=== PATIENT | female | born 1985 | race African-American/Black ===

== ENCOUNTER 2019-08-08 06:15 | Inpatient (IN) | payer MEDICAID, OTHER ==
[~2019-08-08] VITALS: Ht 157.5 cm; Wt 54.0 kg
[~2019-08-08 06:15] MED LIST: AMLO10TA80 PO; BENA20TA10 PO; CALC667C4 PO; CELL5 PO; HYDROXYCHLOROQUINE PO; MIRT-91 PO; [UNRECOGNIZED DRUG - OTHER] PO
[2019-08-08] MEDS ORDERED: ONDANSETRON HCL 4MG/2ML INJ IV STA (06:29)
[2019-08-08] MEDS ORDERED: MORPHINE SULFATE 4 MG/ML CPJ (NOT FOR IM USE) IV STA (06:29)
[2019-08-08] MEDS ORDERED: SODIUM CHLORIDE 0.9% 1000ML BAG (SEPSIS BOLUS) IV ONE (06:30)
[2019-08-08] MEDS ORDERED: ASPIRIN 81MG TABLET PO ONE (06:30)
[2019-08-08] MEDS ORDERED: LEVOFLOXACIN 750MG PREMIX 150 ML IV ONE (06:30)
[2019-08-08 08:31] LABS: EOSINOPHILS % 1.2 % (0.0-5.0); HEMATOCRIT. 28.3 % (36.0-48.0); HEMOGLOBIN. 9.2 g/dL (12.0-16.0); LYMPHOCYTES % 18.8 % (20.0-50.0); MEAN CORPUSCULAR HEMOGLOBIN 29.9 pg (28.0-32.0); MEAN CORPUSCULAR VOLUME 91.6 fL (81.0-99.0); MEAN PLATELET VOLUME 10.9 fl (7.4-10.4); MONOCYTES % 9.9 % (2.0-8.0); NEUTROPHILS % 69.1 % (40.0-76.0); PLATELET 120 x1000/uL (130-400); RED BLOOD CELL COUNT 3.09 mill/uL (4.2-5.4)
[2019-08-08 08:34] LABS: CHLORIDE 106 mEq/L (98-107)
[2019-08-08 08:38] LABS: INR 1.2; PROTHROMBIN TIME 11.9 sec (9.6-11.0)
[2019-08-08 08:51] LABS: HCG SCREEN NEGATIVE
[2019-08-08] MEDS ORDERED: IPRATROPIUM/ALBUTEROL 0.5-3(2.5)MG/3ML NEB HHN PRN (10:00)
[2019-08-08] MEDS ORDERED: DOCUSATE SODIUM 100MG CAPSULE PO PRN (10:00)
[2019-08-08] MEDS ORDERED: MORPHINE SULFATE 2 MG/ML CPJ (NOT FOR IM USE) IV PRN (10:00)
[2019-08-08] MEDS ORDERED: ACETAMINOPHEN 325MG TABLET PO PRN (10:00)
[2019-08-08] MEDS ORDERED: LORAZEPAM 0.5MG TABLET PO PRN (10:00)
[2019-08-08] MEDS ORDERED: HYDROCODONE/ACETAMINOPHEN 5/325MG TABLET PO PRN (10:00)
[2019-08-08] MEDS: ONDANSETRON HCL 4MG/2ML INJ IV PRN ×2 (11:37→21:31)
[2019-08-08 13:31] VITALS: BP 160/109
[2019-08-08 14:09] LABS: CREATINE KINASE MB FRACTION 1.9 ng/mL (0.5-3.6)
[2019-08-08] MEDS ORDERED: CEFTRIAXONE 1 G PREMIX 50 ML IV SCH (14:30)
[2019-08-08] MEDS ORDERED: AZITHROMYCIN 500 MG in DEXT 5% WATER 250 ML IV SCH (15:00)
[2019-08-08] MEDS: MORPHINE SULFATE 2 MG/ML CPJ (NOT FOR IM USE) IV PRN ×2 (15:39→21:05)
[2019-08-08] MEDS ORDERED: DIPHENHYDRAMINE 25MG CAPSULE PO PRN (16:15)
[2019-08-08] MEDS ORDERED: DIPHENHYDRAMINE 50MG/ML VIAL IV NR (16:15)
[2019-08-08 16:21] VITALS: BP 178/103
[2019-08-08] MEDS ORDERED: ONDANSETRON HCL 4MG/2ML INJ IV PRN (16:45)
[2019-08-08] MEDS ORDERED: CLONIDINE 0.1MG TABLET PO PRN (16:45)
[2019-08-08 20:00] VITALS: BP 160/101
[2019-08-08] MEDS: HYDROXYCHLOROQUINE SULFATE 200MG TABLET PO SCH (20:59)
[2019-08-08] MEDS: MYCOPHENOLATE MOFETIL 500MG TABLET PO SCH (20:59)
[2019-08-08] MEDS ORDERED: MIRTAZAPINE 15MG TABLET PO SCH (21:00)
[2019-08-08] MEDS ORDERED: MIRTAZAPINE 30MG TABLET PO SCH (21:00)
[2019-08-09] VITALS: BP 175/114
[2019-08-09] MEDS: MORPHINE SULFATE 2 MG/ML CPJ (NOT FOR IM USE) IV PRN ×2 (01:02→09:08)
[2019-08-09 04:00] VITALS: BP 174/107
[2019-08-09 07:12] LABS: HEMATOCRIT. 31.4 % (36.0-48.0); HEMOGLOBIN. 10.1 g/dL (12.0-16.0); MEAN CORPUSCULAR HEMOGLOBIN 29.7 pg (28.0-32.0); MEAN CORPUSCULAR VOLUME 92.2 fL (81.0-99.0); MEAN PLATELET VOLUME 11.2 fl (7.4-10.4); PLATELET 124 x1000/uL (130-400); RED BLOOD CELL COUNT 3.41 mill/uL (4.2-5.4); RED CELL DISTRIBUTION WIDTH 14.4 % (11.6-14.6)
[2019-08-09 07:41] LABS: PHOSPHORUS 6.8 mg/dL (2.5-4.9)
[2019-08-09 07:54] VITALS: BP 176/113
[2019-08-09] MEDS ORDERED: CALCIUM ACETATE 667MG CAPSULE PO SCH (08:10)
[2019-08-09] MEDS ORDERED: BENAZEPRIL 10MG TABLET PO SCH (09:00)
[2019-08-09] MEDS ORDERED: FOLIC ACID 1MG TABLET PO SCH (09:00)
[2019-08-09] MEDS: MYCOPHENOLATE MOFETIL 500MG TABLET PO SCH (09:00)
[2019-08-09] MEDS ORDERED: MULTIVITAMINS,THER W-MINERALS TABLET PO SCH (09:00)
[2019-08-09] MEDS ORDERED: THIAMINE HCL 100MG TABLET PO SCH (09:00)
[2019-08-09] MEDS ORDERED: AMLODIPINE 10MG TABLET PO SCH (09:00)
[2019-08-09] MEDS: ONDANSETRON HCL 4MG/2ML INJ IV PRN (09:07)
[2019-08-09 09:08] VITALS: BP 176/113
[2019-08-09] MEDS: HYDROXYCHLOROQUINE SULFATE 200MG TABLET PO SCH (09:08)
[2019-08-10 06:31] LABS: PLATELET ESTIMATE NORMAL
== END 2019-08-09 11:02 | disposition left against medical advice (07) | DRG 139 ==
LOC: ER 06:15 → 7WST 09:13 → ENRESERV 11:12
PROVIDERS: ADMIT Internal Medicine; ATTEND Internal Medicine
PROC: 5A1D70Z Performance of Urinary Filtration, Intermittent, Less than 6 Hours Per Day (ICD-10-PCS; principal; 2019-08-08)
DX: J18.9 Pneumonia, unspecified organism (principal); J96.00 Acute respiratory failure, unspecified whether with hypoxia or hypercapnia; E43 Unspecified severe protein-calorie malnutrition; D69.59 Other secondary thrombocytopenia; I12.0 Hypertensive chronic kidney disease with stage 5 chronic kidney disease or end stage renal disease; J81.1 Chronic pulmonary edema; E87.70 Fluid overload, unspecified; M32.9 Systemic lupus erythematosus, unspecified; D63.8 Anemia in other chronic diseases classified elsewhere; Z53.21 Procedure and treatment not carried out due to patient leaving prior to being seen by health care provider; D72.821 Monocytosis (symptomatic); F10.20 Alcohol dependence, uncomplicated; F12.10 Cannabis abuse, uncomplicated; F17.210 Nicotine dependence, cigarettes, uncomplicated; N18.6 End stage renal disease; Z59.0 Homelessness; Z91.15 Patient's noncompliance with renal dialysis; Z91.19 Patient's noncompliance with other medical treatment and regimen; Z99.2 Dependence on renal dialysis; Z68.21 Body mass index [BMI] 21.0-21.9, adult; Z79.899 Other long term (current) drug therapy
CPT/HCPCS: 36415; 71045; 80048; 82550; 82553; 83605; 83735; 83880; 84100; 84145; 84484; 84703; 85379; 93005; 96365; 99291; J0456; J0696; J1200; J1956; J2270; J2405; J7030; J7040; J7060; J7517; Q0163

== ENCOUNTER 2019-08-12 10:09 | Emergency (ER) | payer MEDICAID | END 2019-08-12 11:18 | disposition left against medical advice (07) | LOC: ER 10:09 | DX: Z99.2 Dependence on renal dialysis (principal); Z53.21 Procedure and treatment not carried out due to patient leaving prior to being seen by health care provider ==

== ENCOUNTER 2021-09-30 21:19 | Inpatient (IN) | payer MEDICAID ==
[~2021-09-30] VITALS: Ht 157.5 cm; Wt 45.4 kg
[~2021-09-30 21:19] MED LIST changes: +MIRT-90 PO; -MIRT-91 PO
[2021-09-30] MEDS ORDERED: NITROGLYCERIN 0.4MG TABLET SL SL PRN (23:45)
[2021-09-30] MEDS ORDERED: ASPIRIN 81MG TABLET PO ONE (23:45)
[2021-09-30] MEDS ORDERED: LORAZEPAM 2MG/ML CPJ IV ONE (23:45)
[2021-10-01 00:13] LABS: CHLORIDE 105 mEq/L (98-107)
[2021-10-01 00:17] LABS: ETHANOL BLOOD < 10 mg/dL; HCG SCREEN NEGATIVE
[2021-10-01 00:23] LABS: BASOPHILS % 0.2 % (0.0-2.0); HEMATOCRIT. 35.5 % (36.0-48.0); HEMOGLOBIN. 11.5 g/dL (12.0-16.0); LYMPHOCYTES % 8.4 % (20.0-50.0); MEAN CORPUSCULAR HEMOGLOBIN 31.1 pg (28.0-32.0); MEAN CORPUSCULAR VOLUME 95.8 fL (81.0-99.0); MEAN PLATELET VOLUME 10.1 fl (7.4-10.4); MONOCYTES % 10.8 % (2.0-8.0); NEUTROPHILS % 79.6 % (40.0-76.0); PLATELET 207 x1000/uL (130-400); RED CELL DISTRIBUTION WIDTH 15.9 % (11.6-14.6)
[2021-10-01] MEDS ORDERED: AZITHROMYCIN 500MG/250ML 250 ML IV ONE (00:30)
[2021-10-01] MEDS ORDERED: CEFTRIAXONE 1 G PREMIX 50 ML IV ONE (00:30)
[2021-10-01 08:00] VITALS: BP 120/83
[2021-10-01] MEDS ORDERED: ATOR20TA65 MT (09:50)
[2021-10-01] MEDS ORDERED: METO-396 MT (09:50)
[2021-10-01] MEDS ORDERED: SPIR25TA6 MT (09:50)
[2021-10-01] MEDS ORDERED: HYDR-3782 MT (09:50)
[2021-10-01] MEDS ORDERED: ONDANSETRON HCL 4MG/2ML INJ IV PRN (10:15)
[2021-10-01] MEDS ORDERED: METOPROLOL SUCCINATE 50MG ER TABLET PO SCH (10:15)
[2021-10-01] MEDS ORDERED: CLONIDINE 0.1MG TABLET PO PRN (10:15)
[2021-10-01] MEDS ORDERED: ACETAMINOPHEN 325MG TABLET PO PRN (10:15)
[2021-10-01] MEDS ORDERED: MAGNESIUM/ALUMINUM HYDROXIDE/SIMETHICONE 30ML UDC PO PRN (10:15)
[2021-10-01] MEDS ORDERED: HYDROXYCHLOROQUINE SULFATE 200MG TABLET PO SCH (10:15)
[2021-10-01] MEDS ORDERED: BENAZEPRIL 10MG TABLET PO SCH (10:15)
[2021-10-01] MEDS ORDERED: AMLODIPINE 10MG TABLET PO SCH (10:15)
[2021-10-01] MEDS ORDERED: HYDROCODONE/ACETAMINOPHEN 5/325MG TABLET PO PRN (10:15)
[2021-10-01] MEDS ORDERED: ENOXAPARIN 40MG/0.4ML SYR SUBCUT SCH (10:15)
[2021-10-01] MEDS ORDERED: DOCUSATE SODIUM 100MG CAPSULE PO PRN (10:15)
[2021-10-01] MEDS ORDERED: NALOXONE HCL 0.4MG/ML VIAL IV PRN (10:15)
[2021-10-01] MEDS ORDERED: REN800 MT (10:40)
[2021-10-01] MEDS ORDERED: ENOXAPARIN 30MG/0.3ML SYR SUBCUT SCH (11:00)
[2021-10-01] MEDS ORDERED: METOPROLOL TARTRATE 25MG TABLET PO SCH (11:00)
[2021-10-01] MEDS: HYDROCODONE/ACETAMINOPHEN 5/325MG TABLET PO PRN ×2 (11:03→16:41)
[2021-10-01] MEDS: MYCOPHENOLATE MOFETIL 500MG TABLET PO SCH ×2 (11:04→16:42)
[2021-10-01 12:00] VITALS: BP 139/93
[2021-10-01] MEDS: SEVELAMER CARBONATE 800 MG TABLET PO SCH ×2 (12:53→16:41)
[2021-10-01] MEDS ORDERED: CALCIUM ACETATE 667MG CAPSULE PO SCH (13:10)
[2021-10-01 16:00] VITALS: BP 132/90
[2021-10-01 16:41] VITALS: BP 132/90
[2021-10-01] MEDS ORDERED: MIRTAZAPINE 15MG TABLET PO SCH (21:00)
[2021-10-01] MEDS ORDERED: ATORVASTATIN CALCIUM 20MG TABLET PO SCH (21:00)
[2021-10-02] MEDS ORDERED: OMEPRAZOLE 20MG CAPSULE EXTENDED RELEASE PO SCH (06:40)
== END 2021-10-01 19:18 | disposition left against medical advice (07) | DRG 203 ==
LOC: ER 21:19 → MICUSO 10-01 04:27 → 7WST 10-01 04:40 → 7EST 10-01 15:15
PROVIDERS: ADMIT Internal Medicine; ATTEND Internal Medicine
DX: M94.0 Chondrocostal junction syndrome [Tietze] (principal); I12.0 Hypertensive chronic kidney disease with stage 5 chronic kidney disease or end stage renal disease; E44.0 Moderate protein-calorie malnutrition; D63.8 Anemia in other chronic diseases classified elsewhere; N18.6 End stage renal disease; E87.70 Fluid overload, unspecified; Z20.822 Contact with and (suspected) exposure to COVID-19; F12.10 Cannabis abuse, uncomplicated; Z53.29 Procedure and treatment not carried out because of patient's decision for other reasons; F19.10 Other psychoactive substance abuse, uncomplicated; Z91.19 Patient's noncompliance with other medical treatment and regimen; Z99.2 Dependence on renal dialysis; Z68.1 Body mass index [BMI] 19.9 or less, adult
CPT/HCPCS: 36415; 71045; 80053; 80320; 83605; 83880; 84484; 84703; 85025; 87426; 93005; 93970; 99285; J0456; J0696; J1650; J2060; J7517; G0480

== ENCOUNTER 2021-10-01 20:39 | Inpatient (IN) | payer MEDICAID ==
[~2021-10-01] VITALS: Ht 157.5 cm; Wt 49.0 kg
[~2021-10-01 20:39] MED LIST changes: +ATOR20TA65 MT; +HYDR-3782 MT; +METO-396 MT; +REN800 MT; +SPIR25TA6 MT
[2021-10-02] MEDS ORDERED: CEFTRIAXONE 1 G PREMIX 50 ML IV ONE (01:15)
[2021-10-02] MEDS ORDERED: AZITHROMYCIN 500MG/250ML 250 ML IV ONE (01:15)
[2021-10-02] MEDS ORDERED: ALBUTEROL (0.083%) 2.5MG/3ML NEB HHN ONE (01:15)
[2021-10-02] MEDS ORDERED: SODIUM POLYSTYRENE SULFONATE 15 G/60 ML BOT PO ONE (01:15)
[2021-10-02] MEDS ORDERED: SODIUM BICARBONATE 8.4% 1 MEQ/ML 50ML SYR IV ONE (01:15)
[2021-10-02 01:20] LABS: BASOPHILS % 1.1 % (0.0-2.0); EOSINOPHILS % 2.4 % (0.0-5.0); HEMOGLOBIN. 10.1 g/dL (12.0-16.0); LYMPHOCYTES % 8.5 % (20.0-50.0); MEAN CORPUSCULAR HEMOGLOBIN 29.5 pg (28.0-32.0); MEAN CORPUSCULAR VOLUME 91.1 fL (81.0-99.0); MEAN PLATELET VOLUME 9.2 fl (7.4-10.4); MONOCYTES % 11.5 % (2.0-8.0); NEUTROPHILS % 76.5 % (40.0-76.0); PLATELET 177 x1000/uL (130-400); RED BLOOD CELL COUNT 3.41 mill/uL (4.2-5.4); RED CELL DISTRIBUTION WIDTH 16.1 % (11.6-14.6)
[2021-10-02 01:25] LABS: CHLORIDE 103 mEq/L (98-107)
[2021-10-02 01:28] LABS: INR 1.3; PROTHROMBIN TIME 13.3 sec (9.6-11.0)
[2021-10-02 01:29] LABS: ETHANOL BLOOD < 10 mg/dL
[2021-10-02] MEDS ORDERED: ASPIRIN 81MG TABLET PO ONE (01:30)
[2021-10-02] MEDS ORDERED: NITROGLYCERIN 0.4MG TABLET SL SL PRN (01:30)
[2021-10-02 01:31] LABS: HCG SCREEN NEGATIVE
[2021-10-02] MEDS ORDERED: NALOXONE HCL 0.4MG/ML VIAL IV PRN ×2 (07:15→09:30)
[2021-10-02] MEDS ORDERED: ONDANSETRON HCL 4MG/2ML INJ IV PRN (08:15)
[2021-10-02] MEDS ORDERED: ACETAMINOPHEN 325MG TABLET PO PRN (08:15)
[2021-10-02] MEDS: HYDROCODONE/ACETAMINOPHEN 5/325MG TABLET PO PRN ×4 (09:13→21:14)
[2021-10-02] MEDS ORDERED: LEVOFLOXACIN 250MG PREMIX 50 ML IV SCH (10:00)
[2021-10-02 11:22] LABS: HEPATITIS B SURFACE ANTIGEN NEGATIVE
[2021-10-02 11:48] VITALS: BP 130/80
[2021-10-02 11:49] VITALS: BP 130/80
[2021-10-02] MEDS ORDERED: ENOXAPARIN 30MG/0.3ML SYR SUBCUT SCH (12:30)
[2021-10-02 16:00] VITALS: BP 147/80
[2021-10-02] MEDS ORDERED: CALCIUM ACETATE 667MG CAPSULE PO SCH (17:10)
[2021-10-02] MEDS ORDERED: DIPHENHYDRAMINE 50MG/ML VIAL IV NR ×2 (17:30→19:30)
[2021-10-02 20:00] VITALS: BP 137/77
[2021-10-03] VITALS: BP 140/79
[2021-10-03] MEDS ORDERED: DIPHENHYDRAMINE 50MG/ML VIAL IV PRN
[2021-10-03] MEDS: HYDROCODONE/ACETAMINOPHEN 5/325MG TABLET PO PRN ×2 (01:15→05:17)
[2021-10-03 05:17] VITALS: BP 129/68
[2021-10-03 06:33] LABS: BASOPHILS % 1.4 % (0.0-2.0); EOSINOPHILS % 2.5 % (0.0-5.0); HEMATOCRIT. 28.6 % (36.0-48.0); HEMOGLOBIN. 9.4 g/dL (12.0-16.0); LYMPHOCYTES % 13.9 % (20.0-50.0); MEAN CORPUSCULAR HEMOGLOBIN 30.3 pg (28.0-32.0); MEAN CORPUSCULAR VOLUME 92.2 fL (81.0-99.0); NEUTROPHILS % 72.2 % (40.0-76.0); PLATELET 140 x1000/uL (130-400); RED BLOOD CELL COUNT 3.11 mill/uL (4.2-5.4)
== END 2021-10-03 07:00 | disposition left against medical advice (07) | DRG 139 ==
LOC: ER 20:39 → MICUSO 10-02 01:30 → 7EST 10-02 10:51
PROVIDERS: ADMIT Internal Medicine; ATTEND Internal Medicine
PROC: 5A1D70Z Performance of Urinary Filtration, Intermittent, Less than 6 Hours Per Day (ICD-10-PCS; principal; 2021-10-02)
DX: J18.9 Pneumonia, unspecified organism (principal); E43 Unspecified severe protein-calorie malnutrition; I13.11 Hypertensive heart and chronic kidney disease without heart failure, with stage 5 chronic kidney disease, or end stage renal disease; N18.6 End stage renal disease; M32.9 Systemic lupus erythematosus, unspecified; M94.0 Chondrocostal junction syndrome [Tietze]; E87.5 Hyperkalemia; I25.10 Atherosclerotic heart disease of native coronary artery without angina pectoris; F17.210 Nicotine dependence, cigarettes, uncomplicated; M19.90 Unspecified osteoarthritis, unspecified site; F31.9 Bipolar disorder, unspecified; Z20.822 Contact with and (suspected) exposure to COVID-19; R74.8 Abnormal levels of other serum enzymes; R91.8 Other nonspecific abnormal finding of lung field; Z79.899 Other long term (current) drug therapy; Z99.2 Dependence on renal dialysis; Z87.81 Personal history of (healed) traumatic fracture; Z68.1 Body mass index [BMI] 19.9 or less, adult; D64.9 Anemia, unspecified
CPT/HCPCS: 36415; 71045; 80048; 80053; 80320; 83605; 83880; 84484; 84703; 85025; 86705; 86709; 86803; 87340; 87426; 93005; 94640; 99285; J0456; J0696; J1200; J1650; J1956; J3490; G0480

== ENCOUNTER 2022-01-02 14:39 | Emergency (ER) | payer MEDICAID ==
[~2022-01-02] VITALS: Ht 157.5 cm; Wt 70.0 kg
[2022-01-02 17:49] VITALS: BP 170/110
[2022-01-02 18:10] LABS: BASOPHILS % 0.5 % (0.0-2.0); EOSINOPHILS % 0.3 % (0.0-5.0); HEMATOCRIT. 32.6 % (36.0-48.0); HEMOGLOBIN. 10.4 g/dL (12.0-16.0); LYMPHOCYTES % 11.7 % (20.0-50.0); MEAN CORPUSCULAR HEMOGLOBIN 29.1 pg (28.0-32.0); MEAN PLATELET VOLUME 9.3 fl (7.4-10.4); MONOCYTES % 9.2 % (2.0-8.0); NEUTROPHILS % 78.3 % (40.0-76.0); PLATELET 112 x1000/uL (130-400); RED BLOOD CELL COUNT 3.58 mill/uL (4.2-5.4); RED CELL DISTRIBUTION WIDTH 16.2 % (11.6-14.6)
[2022-01-02 18:17] LABS: CHLORIDE 99 mEq/L (98-107)
[2022-01-02] MEDS ORDERED: ACETAMINOPHEN 325MG TABLET PO ONE (18:45)
== END 2022-01-02 19:02 | disposition home or self-care (01) ==
LOC: ER 14:39
DX: F16.129 Hallucinogen abuse with intoxication, unspecified (principal); R41.0 Disorientation, unspecified; R45.1 Restlessness and agitation; I12.0 Hypertensive chronic kidney disease with stage 5 chronic kidney disease or end stage renal disease; N18.6 End stage renal disease; D63.1 Anemia in chronic kidney disease; F12.10 Cannabis abuse, uncomplicated; M19.90 Unspecified osteoarthritis, unspecified site; F31.9 Bipolar disorder, unspecified; I25.10 Atherosclerotic heart disease of native coronary artery without angina pectoris; M32.9 Systemic lupus erythematosus, unspecified; E78.00 Pure hypercholesterolemia, unspecified; Z78.1 Physical restraint status; Z99.2 Dependence on renal dialysis; Z91.14 Patient's other noncompliance with medication regimen
CPT/HCPCS: 36415; 71045; 80053; 85025; 99291

== ENCOUNTER 2022-01-02 19:24 | Emergency (ER) | payer MEDICAID ==
[~2022-01-02] VITALS: Ht 157.5 cm; Wt 50.8 kg
[2022-01-02 22:56] LABS: BASOPHILS % 0.6 % (0.0-2.0); EOSINOPHILS % 0.4 % (0.0-5.0); HEMATOCRIT. 34.8 % (36.0-48.0); HEMOGLOBIN. 11.4 g/dL (12.0-16.0); LYMPHOCYTES % 15.5 % (20.0-50.0); MEAN CORPUSCULAR HEMOGLOBIN 29.8 pg (28.0-32.0); MEAN CORPUSCULAR VOLUME 90.9 fL (81.0-99.0); MEAN PLATELET VOLUME 8.8 fl (7.4-10.4); MONOCYTES % 13.4 % (2.0-8.0); NEUTROPHILS % 70.1 % (40.0-76.0); PLATELET 104 x1000/uL (130-400); RED BLOOD CELL COUNT 3.83 mill/uL (4.2-5.4); RED CELL DISTRIBUTION WIDTH 15.9 % (11.6-14.6)
[2022-01-02 23:02] LABS: CHLORIDE 99 mEq/L (98-107)
[2022-01-02 23:06] LABS: ETHANOL BLOOD < 10 mg/dL
[2022-01-03 01:15] VITALS: BP 156/98
== END 2022-01-03 01:28 | disposition home or self-care (01) ==
LOC: ER 19:24
DX: N19 Unspecified kidney failure (principal); I12.0 Hypertensive chronic kidney disease with stage 5 chronic kidney disease or end stage renal disease; Z99.2 Dependence on renal dialysis; E78.00 Pure hypercholesterolemia, unspecified; I25.10 Atherosclerotic heart disease of native coronary artery without angina pectoris; F31.9 Bipolar disorder, unspecified; Z98.890 Other specified postprocedural states; F12.10 Cannabis abuse, uncomplicated; Z79.899 Other long term (current) drug therapy
CPT/HCPCS: 36415; 71045; 80053; 80320; 83880; 84484; 85025; 93005; 99285; G0480

== ENCOUNTER 2022-04-17 01:55 | Emergency (ER) | payer MEDICAID ==
[~2022-04-17] VITALS: Ht 165.1 cm; Wt 48.0 kg
[2022-04-17] MEDS ORDERED: HYDROCODONE/ACETAMINOPHEN 5/325MG TABLET PO ONE (03:15)
[2022-04-17 03:25] VITALS: BP 152/90
[2022-04-17 03:33] LABS: BASOPHILS % 0.8 % (0.0-2.0); EOSINOPHILS % 1.4 % (0.0-5.0); HEMATOCRIT. 25.9 % (36.0-48.0); HEMOGLOBIN. 8.4 g/dL (12.0-16.0); MEAN CORPUSCULAR HEMOGLOBIN 27.9 pg (28.0-32.0); MEAN CORPUSCULAR VOLUME 86.4 fL (81.0-99.0); MONOCYTES % 9.4 % (2.0-8.0); NEUTROPHILS % 78.4 % (40.0-76.0); PLATELET 148 x1000/uL (130-400); RED BLOOD CELL COUNT 2.99 mill/uL (4.2-5.4); RED CELL DISTRIBUTION WIDTH 17.5 % (11.6-14.6)
[2022-04-17 03:42] LABS: CHLORIDE 99 mEq/L (98-107)
[2022-04-17] MEDS ORDERED: DIPHENHYDRAMINE 25MG CAPSULE PO ONE (04:45)
== END 2022-04-17 05:05 | disposition home or self-care (01) ==
LOC: ER 01:55
DX: S50.11XA Contusion of right forearm, initial encounter (principal); S20.212A Contusion of left front wall of thorax, initial encounter; E11.22 Type 2 diabetes mellitus with diabetic chronic kidney disease; I12.0 Hypertensive chronic kidney disease with stage 5 chronic kidney disease or end stage renal disease; N18.6 End stage renal disease; M32.9 Systemic lupus erythematosus, unspecified; Z99.2 Dependence on renal dialysis; W10.8XXA Fall (on) (from) other stairs and steps, initial encounter; Y93.89 Activity, other specified; Y92.89 Other specified places as the place of occurrence of the external cause
CPT/HCPCS: 36415; 71101; 73090; 80053; 82962; 85025; 99284; Q0163

== ENCOUNTER 2022-09-20 11:25 | Inpatient (IN) | payer MEDICAID ==
[~2022-09-20] VITALS: Ht 157.5 cm; Wt 49.9 kg
[~2022-09-20 11:25] MED LIST changes: +BENA-8 PO; -BENA20TA10 PO
[2022-09-20 12:00] LABS: BASOPHILS % 0.5 % (0.0-2.0); EOSINOPHILS % 0.3 % (0.0-5.0); HEMATOCRIT. 35.6 % (36.0-48.0); HEMOGLOBIN. 11.7 g/dL (12.0-16.0); LYMPHOCYTES % 7.3 % (20.0-50.0); MEAN CORPUSCULAR HEMOGLOBIN 27.7 pg (28.0-32.0); MEAN CORPUSCULAR VOLUME 84.5 fL (81.0-99.0); MONOCYTES % 10.2 % (2.0-8.0); NEUTROPHILS % 81.7 % (40.0-76.0); PLATELET 137 x1000/uL (130-400); RED CELL DISTRIBUTION WIDTH 20.2 % (11.6-14.6)
[2022-09-20 12:19] LABS: CHLORIDE 98 mEq/L (98-107)
[2022-09-20] MEDS ORDERED: DOCUSATE SODIUM 100MG CAPSULE PO PRN (14:00)
[2022-09-20] MEDS ORDERED: IPRATROPIUM/ALBUTEROL 0.5-3(2.5)MG/3ML NEB HHN PRN (14:00)
[2022-09-20] MEDS ORDERED: CLONIDINE 0.1MG TABLET PO PRN (14:00)
[2022-09-20] MEDS ORDERED: ZOLPIDEM TARTRATE 5MG TABLET PO PRN (14:15)
[2022-09-20] MEDS ORDERED: SPIRONOLACTONE 25MG TABLET PO SCH (14:30)
[2022-09-20] MEDS ORDERED: METO-385 PO (14:51)
[2022-09-20] MEDS ORDERED: HYDR-4133 PO (14:51)
[2022-09-20] MEDS ORDERED: COR3 PO (14:52)
[2022-09-20] MEDS ORDERED: MAGN400T26 PO (14:52)
[2022-09-20] MEDS ORDERED: ASPI-1406 PO (14:53)
[2022-09-20] MEDS ORDERED: PANT40SU PO (14:54)
[2022-09-20] MEDS ORDERED: MELO10CA PO (14:54)
[2022-09-20] MEDS ORDERED: ATOR80TA PO (14:55)
[2022-09-20] MEDS ORDERED: SEVE800T8 PO (14:57)
[2022-09-20] MEDS ORDERED: HYDROXYZINE 10 MG TABLET PO PRN (15:00)
[2022-09-20] MEDS: AMLODIPINE 10MG TABLET PO SCH (15:10)
[2022-09-20 16:00] VITALS: BP 130/89
[2022-09-20 16:26] LABS: CREATINE KINASE 27 IU/L (26-192); CREATINE KINASE MB FRACTION 2.1 ng/mL (0.5-3.6); ETHANOL BLOOD < 10 mg/dL
[2022-09-20] MEDS: SEVELAMER CARBONATE 800 MG TABLET PO SCH (18:23)
[2022-09-20] MEDS: HYDROCODONE/ACETAMINOPHEN 5/325MG TABLET PO PRN ×2 (18:24→23:33)
[2022-09-20] MEDS: MYCOPHENOLATE MOFETIL 500MG TABLET PO SCH (18:24)
[2022-09-20] MEDS: HYDROXYCHLOROQUINE SULFATE 200MG TABLET PO SCH (18:24)
[2022-09-20] MEDS ORDERED: NALOXONE HCL 0.4MG/ML VIAL IV PRN (18:30)
[2022-09-20] MEDS: MIRTAZAPINE 30MG TABLET PO SCH (21:00)
[2022-09-20] MEDS: ATORVASTATIN CALCIUM 20MG TABLET PO SCH (21:02)
[2022-09-20] MEDS: FAMOTIDINE 20MG TABLET PO SCH (21:02)
[2022-09-20 21:27] LABS: CREATINE KINASE MB FRACTION 2.4 ng/mL (0.5-3.6)
[2022-09-20 21:46] LABS: HEPATITIS B SURFACE ANTIGEN NEGATIVE
[2022-09-20] MEDS: ONDANSETRON HCL 4MG/2ML INJ IV PRN (23:39)
[2022-09-21] VITALS (9 sets, daily range): BP systolic 120–143; BP diastolic 82–99
[2022-09-21] MEDS: SEVELAMER CARBONATE 800 MG TABLET PO SCH ×3 (06:35→17:06)
[2022-09-21] MEDS: HYDROCODONE/ACETAMINOPHEN 5/325MG TABLET PO PRN ×4 (07:43→21:05)
[2022-09-21] MEDS ORDERED: METOPROLOL SUCCINATE 50MG ER TABLET PO SCH (09:00)
[2022-09-21] MEDS ORDERED: MEDICATION NOT ON FORMULARY EA (Benazepril Hcl 20 MG) PO SCH (09:00)
[2022-09-21] MEDS ORDERED: MEDICATION NOT ON FORMULARY EA (Metoprolol Succinate 1 TAB) MT SCH (09:00)
[2022-09-21] MEDS ORDERED: HYDROXYCHLOROQUINE 200 MG PO SCH (09:00)
[2022-09-21] MEDS: BENAZEPRIL 10MG TABLET PO SCH (09:25)
[2022-09-21] MEDS: HYDROXYCHLOROQUINE SULFATE 200MG TABLET PO SCH (09:25)
[2022-09-21] MEDS: METOPROLOL SUCCINATE 50MG ER TABLET PO SCH (09:25)
[2022-09-21] MEDS: AMLODIPINE 10MG TABLET PO SCH (09:26)
[2022-09-21] MEDS: DIPHENHYDRAMINE 25MG CAPSULE PO NR ×2 (09:26→14:58)
[2022-09-21] MEDS: MYCOPHENOLATE MOFETIL 500MG TABLET PO SCH ×2 (09:28→17:05)
[2022-09-21 10:29] LABS: BASOPHILS % 0.6 % (0.0-2.0); EOSINOPHILS % 1.1 % (0.0-5.0); HEMATOCRIT. 33.2 % (36.0-48.0); HEMOGLOBIN. 10.5 g/dL (12.0-16.0); LYMPHOCYTES % 10.3 % (20.0-50.0); MEAN CORPUSCULAR HEMOGLOBIN 26.8 pg (28.0-32.0); MEAN CORPUSCULAR VOLUME 85.1 fL (81.0-99.0); MEAN PLATELET VOLUME 9.5 fl (7.4-10.4); MONOCYTES % 10.4 % (2.0-8.0); NEUTROPHILS % 77.6 % (40.0-76.0); PLATELET 116 x1000/uL (130-400)
[2022-09-21 10:44] LABS: CHLORIDE 100 mEq/L (98-107)
[2022-09-21 11:00] LABS: HDL CHOLESTEROL 51 mg/dL (40-59); LDL CHOLESTEROL 60 mg/dL (5-100); PHOSPHORUS 6.2 mg/dL (2.5-4.9); T4 FREE 0.94 ng/dL (0.76-1.46); TOTAL IRON BINDING CAPACITY 178 ug/dL (250-450)
[2022-09-21 11:14] LABS: VITAMIN B12 SERUM 773 pg/mL (211-911)
[2022-09-21] MEDS ORDERED: VANCOMYCIN 1G PREMIX 200 ML IV SCH (14:00)
[2022-09-21] MEDS: MORPHINE SULFATE 2 MG/ML CPJ (NOT FOR IM USE) IV NR ×2 (14:15→14:21)
[2022-09-21 14:28] LABS: FERRITIN 934 ng/mL (10-291)
[2022-09-21] MEDS: MIRTAZAPINE 30MG TABLET PO SCH (20:43)
[2022-09-21] MEDS: FAMOTIDINE 20MG TABLET PO SCH (20:43)
[2022-09-21] MEDS: ATORVASTATIN CALCIUM 20MG TABLET PO SCH (20:43)
[2022-09-21] MEDS: DIPHENHYDRAMINE 25MG CAPSULE PO PRN (20:43)
[2022-09-22] MEDS: HYDROCODONE/ACETAMINOPHEN 5/325MG TABLET PO PRN (03:45)
[2022-09-22] MEDS: DIPHENHYDRAMINE 25MG CAPSULE PO PRN ×3 (03:50→22:27)
[2022-09-22 04:00] VITALS: BP 123/82
[2022-09-22 06:54] LABS: HEMATOCRIT. 37.9 % (36.0-48.0); HEMOGLOBIN. 11.8 g/dL (12.0-16.0); MEAN CORPUSCULAR VOLUME 86.6 fL (81.0-99.0); MEAN PLATELET VOLUME 9.9 fl (7.4-10.4); PLATELET 128 x1000/uL (130-400); RED BLOOD CELL COUNT 4.38 mill/uL (4.2-5.4); RED CELL DISTRIBUTION WIDTH 20.4 % (11.6-14.6)
[2022-09-22 07:11] LABS: CHLORIDE 96 mEq/L (98-107)
[2022-09-22 07:21] LABS: CREATINE KINASE 49 IU/L (26-192); CREATINE KINASE MB FRACTION 3.7 ng/mL (0.5-3.6); PHOSPHORUS 6.9 mg/dL (2.5-4.9)
[2022-09-22] MEDS: METOPROLOL SUCCINATE 50MG ER TABLET PO SCH (09:00)
[2022-09-22] MEDS: AMLODIPINE 10MG TABLET PO SCH (09:00)
[2022-09-22] MEDS: BENAZEPRIL 10MG TABLET PO SCH (09:00)
[2022-09-22] MEDS: MYCOPHENOLATE MOFETIL 500MG TABLET PO SCH ×2 (09:00→18:24)
[2022-09-22] MEDS: HYDROXYCHLOROQUINE SULFATE 200MG TABLET PO SCH (09:00)
[2022-09-22] MEDS: SEVELAMER CARBONATE 800 MG TABLET PO SCH ×3 (09:01→18:24)
[2022-09-22 13:53] LABS: PLATELET ESTIMATE SLIGHTLY DECREASED
[2022-09-22 15:48] VITALS: BP 146/97
[2022-09-22] MEDS ORDERED: MIRTAZAPINE 15MG TABLET PO SCH ×2 (15:58→21:00)
[2022-09-22 20:00] VITALS: BP 141/95
[2022-09-22] MEDS: ACETAMINOPHEN 325MG TABLET PO PRN (21:16)
[2022-09-22] MEDS: ATORVASTATIN CALCIUM 20MG TABLET PO SCH (21:16)
[2022-09-22] MEDS: FAMOTIDINE 20MG TABLET PO SCH (21:16)
[2022-09-22] MEDS: GUAIFENESIN 200MG/10ML SUGAR FREE UDC PO PRN (21:24)
[2022-09-22] MEDS: ONDANSETRON HCL 4MG/2ML INJ IV PRN (21:50)
[2022-09-23] MEDS: ACETAMINOPHEN 325MG TABLET PO PRN ×2 (02:38→08:49)
[2022-09-23] MEDS: DIPHENHYDRAMINE 25MG CAPSULE PO PRN ×2 (04:24→10:05)
[2022-09-23] MEDS: ONDANSETRON HCL 4MG/2ML INJ IV PRN ×2 (06:10→10:05)
[2022-09-23 08:00] VITALS: BP 137/97
[2022-09-23] MEDS: AMLODIPINE 10MG TABLET PO SCH (08:40)
[2022-09-23] MEDS: SEVELAMER CARBONATE 800 MG TABLET PO SCH ×2 (08:40→12:20)
[2022-09-23] MEDS: MYCOPHENOLATE MOFETIL 500MG TABLET PO SCH (08:40)
[2022-09-23] MEDS: BENAZEPRIL 10MG TABLET PO SCH (08:40)
[2022-09-23] MEDS: METOPROLOL SUCCINATE 50MG ER TABLET PO SCH (08:41)
[2022-09-23] MEDS: HYDROXYCHLOROQUINE SULFATE 200MG TABLET PO SCH (08:41)
[2022-09-23] MEDS ORDERED: ENOXAPARIN 30MG/0.3ML SYR SUBCUT SCH (09:00)
[2022-09-23] MEDS ORDERED: TRAMADOL 50MG TABLET PO PRN (09:00)
[2022-09-23] MEDS: GUAIFENESIN 200MG/10ML SUGAR FREE UDC PO PRN (12:22)
[2022-09-23 12:28] VITALS: BP 137/63
== END 2022-09-23 13:20 | disposition left against medical advice (07) | DRG 721 ==
LOC: ER 11:25 → 8WST 12:59 → EDBEDREQSVC 14:57
PROVIDERS: ADMIT Internal Medicine; ATTEND Internal Medicine
PROC: 5A1D70Z Performance of Urinary Filtration, Intermittent, Less than 6 Hours Per Day (ICD-10-PCS; principal; 2022-09-21)
DX: T80.211A Bloodstream infection due to central venous catheter, initial encounter (principal); A41.89 Other specified sepsis; D69.6 Thrombocytopenia, unspecified; I13.2 Hypertensive heart and chronic kidney disease with heart failure and with stage 5 chronic kidney disease, or end stage renal disease; E46 Unspecified protein-calorie malnutrition; I47.1 Supraventricular tachycardia; N18.6 End stage renal disease; D63.1 Anemia in chronic kidney disease; R18.8 Other ascites; E11.22 Type 2 diabetes mellitus with diabetic chronic kidney disease; B96.89 Other specified bacterial agents as the cause of diseases classified elsewhere; E78.5 Hyperlipidemia, unspecified; F31.9 Bipolar disorder, unspecified; E87.6 Hypokalemia; I50.9 Heart failure, unspecified; M32.9 Systemic lupus erythematosus, unspecified; E11.65 Type 2 diabetes mellitus with hyperglycemia; I25.10 Atherosclerotic heart disease of native coronary artery without angina pectoris; F10.20 Alcohol dependence, uncomplicated; F19.10 Other psychoactive substance abuse, uncomplicated; Z79.899 Other long term (current) drug therapy; Z99.2 Dependence on renal dialysis; Z68.20 Body mass index [BMI] 20.0-20.9, adult; Z59.00 Homelessness unspecified; Z91.14 Patient's other noncompliance with medication regimen; Z91.15 Patient's noncompliance with renal dialysis
CPT/HCPCS: 36415; 71045; 80053; 80061; 80320; 82550; 82553; 82607; 82728; 82746; 83036; 83540; 83550; 83735; 83880; 84100; 84439; 84443; 84484; 85025; 85379; 86705; 86709; 86803; 87077; 87186; 87340; 90935; 93005; 93306; 93970; 94640; 99285; C1893; J2270; J2405; J3370; J7517; Q0163; G0480

== ENCOUNTER 2022-10-07 15:42 | Inpatient (IN) | payer MEDICAID ==
[~2022-10-07] VITALS: Ht 162.6 cm; Wt 50.2 kg
[~2022-10-07 15:42] MED LIST changes: +ASPI-1406 PO; -ATOR20TA65 MT; +ATOR80TA PO; +COR3 PO; +HYDR-4133 PO; +MAGN400T26 PO; +MELO10CA PO; +METO-385 PO; -METO-396 MT; +PANT40SU PO; -REN800 MT; +SEVE800T8 PO
[2022-10-07 17:14] LABS: BASOPHILS % 1.2 % (0.0-2.0); EOSINOPHILS % 0.8 % (0.0-5.0); HEMOGLOBIN. 10.5 g/dL (12.0-16.0); LYMPHOCYTES % 16.9 % (20.0-50.0); MEAN CORPUSCULAR HEMOGLOBIN 25.9 pg (28.0-32.0); MEAN CORPUSCULAR VOLUME 83.8 fL (81.0-99.0); MEAN PLATELET VOLUME 9.6 fl (7.4-10.4); MONOCYTES % 13.9 % (2.0-8.0); NEUTROPHILS % 67.2 % (40.0-76.0); PLATELET 123 x1000/uL (130-400); RED BLOOD CELL COUNT 4.06 mill/uL (4.2-5.4); RED CELL DISTRIBUTION WIDTH 20.6 % (11.6-14.6)
[2022-10-07 17:27] LABS: INR 1.3; PROTHROMBIN TIME 13.5 sec (9.6-11.0)
[2022-10-07 18:30] LABS: CHLORIDE 95 mEq/L (98-107)
[2022-10-07] MEDS ORDERED: ALBUTEROL (0.083%) 2.5MG/3ML NEB HHN STA (19:19)
[2022-10-07] MEDS ORDERED: IPRATROPIUM BROMIDE (0.02%) 0.5MG/2.5ML NEB HHN STA (19:19)
[2022-10-07 21:05] VITALS: BP 157/73
[2022-10-07 22:13] VITALS: BP 157/73
[2022-10-07] MEDS ORDERED: CLONIDINE 0.1MG TABLET PO PRN (23:15)
[2022-10-07] MEDS: DIPHENHYDRAMINE 50MG/ML VIAL IV PRN (23:29)
[2022-10-07] MEDS: ONDANSETRON HCL 4MG/2ML INJ IV PRN (23:29)
[2022-10-07] MEDS: METHYLPREDNISOLONE SOD SUCC 40 MG/ML VIAL IV SCH (23:30)
[2022-10-08] VITALS (14 sets, daily range): BP systolic 118–159; BP diastolic 67–100
[2022-10-08] MEDS: MORPHINE SULFATE 2 MG/ML CPJ (NOT FOR IM USE) IV PRN ×5 (01:05→22:29)
[2022-10-08] MEDS: ONDANSETRON HCL 4MG/2ML INJ IV PRN ×4 (05:09→22:44)
[2022-10-08 05:27] LABS: HEMATOCRIT. 33.2 % (36.0-48.0); HEMOGLOBIN. 10.2 g/dL (12.0-16.0); MEAN CORPUSCULAR HEMOGLOBIN 26.2 pg (28.0-32.0); MEAN CORPUSCULAR VOLUME 85.4 fL (81.0-99.0); MEAN PLATELET VOLUME 9.9 fl (7.4-10.4); PLATELET 133 x1000/uL (130-400); RED BLOOD CELL COUNT 3.89 mill/uL (4.2-5.4); RED CELL DISTRIBUTION WIDTH 20.8 % (11.6-14.6)
[2022-10-08] MEDS: DIPHENHYDRAMINE 50MG/ML VIAL IV PRN ×2 (06:31→12:34)
[2022-10-08] MEDS ORDERED: ACETAMINOPHEN 325MG TABLET PO PRN (08:15)
[2022-10-08] MEDS: IPRATROPIUM/ALBUTEROL 0.5-3(2.5)MG/3ML NEB HHN SCH ×4 (08:16→20:00)
[2022-10-08] MEDS: METHYLPREDNISOLONE SOD SUCC 40 MG/ML VIAL IV SCH ×2 (08:39→16:27)
[2022-10-08] MEDS: HEPARIN 5000 UNITS/ML VIAL SUBCUT SCH ×3 (08:40→20:02)
[2022-10-08 11:11] LABS: PLATELET ESTIMATE NORMAL
[2022-10-08] MEDS ORDERED: HYDROXYZINE 10 MG TABLET PO PRN (11:30)
[2022-10-08] MEDS ORDERED: MELOXICAM SUBMICRONIZED 10 MG PO SCH (11:30)
[2022-10-08] MEDS: METOPROLOL SUCCINATE 50MG ER TABLET PO SCH ×2 (12:18→12:35)
[2022-10-08] MEDS: MAGNESIUM OXIDE 400MG TABLET PO SCH (12:35)
[2022-10-08] MEDS: ASPIRIN 81MG EC TABLET PO SCH (12:35)
[2022-10-08] MEDS: CALCIUM ACETATE 667MG CAPSULE PO SCH ×2 (12:35→16:29)
[2022-10-08] MEDS: CARVEDILOL 3.125 MG TABLET PO SCH ×2 (12:36→20:15)
[2022-10-08] MEDS: SEVELAMER CARBONATE 800 MG TABLET PO SCH ×2 (12:36→16:29)
[2022-10-08] MEDS: HYDRALAZINE HCL 10MG TABLET PO SCH ×2 (12:36→16:28)
[2022-10-08] MEDS: AMLODIPINE 10MG TABLET PO SCH (12:36)
[2022-10-08] MEDS: BENAZEPRIL 10MG TABLET PO SCH (13:00)
[2022-10-08] MEDS: SPIRONOLACTONE 25MG TABLET PO SCH (13:00)
[2022-10-08] MEDS ORDERED: NALOXONE HCL 0.4MG/ML VIAL IV PRN (13:45)
[2022-10-08] MEDS: HYDROMORPHONE HCL/PF 2MG/ML CPJ IV PRN ×2 (13:51→20:19)
[2022-10-08 15:03] LABS: HEPATITIS B SURFACE ANTIGEN NEGATIVE
[2022-10-08] MEDS: FOLIC ACID/VITAMIN B COMP W-C TABLET PO SCH (16:27)
[2022-10-08] MEDS: HYDROXYCHLOROQUINE SULFATE 200MG TABLET PO SCH (16:27)
[2022-10-08] MEDS: MELOXICAM 7.5MG TABLET PO SCH (16:28)
[2022-10-08] MEDS: DIPHENHYDRAMINE 50MG/ML VIAL IV NR ×2 (16:28→22:29)
[2022-10-08] MEDS: MYCOPHENOLATE MOFETIL 500MG TABLET PO SCH (16:28)
[2022-10-08] MEDS: MIRTAZAPINE 15MG TABLET PO SCH (20:03)
[2022-10-08] MEDS: ATORVASTATIN CALCIUM 40MG TABLET PO SCH (20:15)
[2022-10-08] MEDS: PANTOPRAZOLE 40MG DR TABLET PO SCH (20:15)
[2022-10-09] VITALS: BP_SYST 104; BP_SYST 107; BP_DIAS 64; BP_DIAS 67
[2022-10-09] MEDS: METHYLPREDNISOLONE SOD SUCC 40 MG/ML VIAL IV SCH ×3 (00:15→17:40)
[2022-10-09] MEDS: IPRATROPIUM/ALBUTEROL 0.5-3(2.5)MG/3ML NEB HHN SCH ×6 (01:20→21:14)
[2022-10-09 04:00] VITALS: BP 107/67
[2022-10-09] MEDS: HYDROMORPHONE HCL/PF 2MG/ML CPJ IV PRN ×2 (05:22→12:25)
[2022-10-09] MEDS: ONDANSETRON HCL 4MG/2ML INJ IV PRN ×2 (05:23→21:37)
[2022-10-09] MEDS: DIPHENHYDRAMINE 50MG/ML VIAL IV PRN ×3 (06:51→21:06)
[2022-10-09] MEDS: CALCIUM ACETATE 667MG CAPSULE PO SCH ×3 (06:51→17:40)
[2022-10-09] MEDS: SEVELAMER CARBONATE 800 MG TABLET PO SCH ×4 (06:55→17:40)
[2022-10-09 07:16] LABS: BASOPHILS % 0.1 % (0.0-2.0); HEMATOCRIT. 31.5 % (36.0-48.0); HEMOGLOBIN. 9.9 g/dL (12.0-16.0); LYMPHOCYTES % 10.1 % (20.0-50.0); MEAN CORPUSCULAR HEMOGLOBIN 26.5 pg (28.0-32.0); MEAN CORPUSCULAR VOLUME 84.3 fL (81.0-99.0); MEAN PLATELET VOLUME 9.8 fl (7.4-10.4); MONOCYTES % 9.4 % (2.0-8.0); NEUTROPHILS % 80.4 % (40.0-76.0); PLATELET 149 x1000/uL (130-400); RED BLOOD CELL COUNT 3.73 mill/uL (4.2-5.4); RED CELL DISTRIBUTION WIDTH 20.9 % (11.6-14.6)
[2022-10-09] MEDS: HYDRALAZINE HCL 10MG TABLET PO SCH ×3 (09:00→17:40)
[2022-10-09] MEDS: MYCOPHENOLATE MOFETIL 500MG TABLET PO SCH ×2 (09:00→17:40)
[2022-10-09] MEDS: CARVEDILOL 3.125 MG TABLET PO SCH ×2 (09:00→20:39)
[2022-10-09] MEDS: SPIRONOLACTONE 25MG TABLET PO SCH (09:00)
[2022-10-09] MEDS: FOLIC ACID/VITAMIN B COMP W-C TABLET PO SCH (09:00)
[2022-10-09] MEDS: ASPIRIN 81MG EC TABLET PO SCH (09:00)
[2022-10-09] MEDS: MELOXICAM 7.5MG TABLET PO SCH (09:00)
[2022-10-09] MEDS: AMLODIPINE 10MG TABLET PO SCH (09:00)
[2022-10-09] MEDS: HYDROXYCHLOROQUINE SULFATE 200MG TABLET PO SCH (09:00)
[2022-10-09] MEDS: BENAZEPRIL 10MG TABLET PO SCH (09:00)
[2022-10-09] MEDS: HEPARIN 5000 UNITS/ML VIAL SUBCUT SCH ×2 (09:00→21:00)
[2022-10-09] MEDS: METOPROLOL SUCCINATE 50MG ER TABLET PO SCH (09:00)
[2022-10-09] MEDS: MAGNESIUM OXIDE 400MG TABLET PO SCH (09:00)
[2022-10-09] MEDS: PANTOPRAZOLE 40MG DR TABLET PO SCH ×2 (09:00→20:39)
[2022-10-09 12:00] VITALS: BP 106/68
[2022-10-09 16:00] VITALS: BP 143/78
[2022-10-09] MEDS: ATORVASTATIN CALCIUM 40MG TABLET PO SCH (20:39)
[2022-10-09] MEDS: MORPHINE SULFATE 2 MG/ML CPJ (NOT FOR IM USE) IV PRN (20:40)
[2022-10-09] MEDS: MIRTAZAPINE 15MG TABLET PO SCH (21:00)
[2022-10-10] VITALS (13 sets, daily range): BP systolic 105–145; BP diastolic 55–99
[2022-10-10] MEDS: IPRATROPIUM/ALBUTEROL 0.5-3(2.5)MG/3ML NEB HHN SCH ×5 (00:40→16:38)
[2022-10-10] MEDS: METHYLPREDNISOLONE SOD SUCC 40 MG/ML VIAL IV SCH ×3 (02:01→15:49)
[2022-10-10] MEDS: DIPHENHYDRAMINE 50MG/ML VIAL IV PRN ×3 (03:56→15:49)
[2022-10-10] MEDS: MORPHINE SULFATE 2 MG/ML CPJ (NOT FOR IM USE) IV PRN ×3 (04:26→15:56)
[2022-10-10] MEDS ORDERED: *PATIENT'S OWN MEDICATION STORAGE XX SCH (05:45)
[2022-10-10] MEDS: HYDROMORPHONE HCL/PF 2MG/ML CPJ IV PRN ×2 (06:44→12:55)
[2022-10-10] MEDS: CALCIUM ACETATE 667MG CAPSULE PO SCH ×3 (08:00→16:49)
[2022-10-10] MEDS: SEVELAMER CARBONATE 800 MG TABLET PO SCH ×3 (08:00→16:49)
[2022-10-10] MEDS: BENAZEPRIL 10MG TABLET PO SCH (09:00)
[2022-10-10] MEDS: HEPARIN 5000 UNITS/ML VIAL SUBCUT SCH (09:00)
[2022-10-10] MEDS: HYDRALAZINE HCL 10MG TABLET PO SCH ×3 (09:00→16:49)
[2022-10-10] MEDS: SPIRONOLACTONE 25MG TABLET PO SCH (09:00)
[2022-10-10] MEDS: AMLODIPINE 10MG TABLET PO SCH (09:00)
[2022-10-10] MEDS: METOPROLOL SUCCINATE 50MG ER TABLET PO SCH (09:00)
[2022-10-10] MEDS: PANTOPRAZOLE 40MG DR TABLET PO SCH (09:05)
[2022-10-10] MEDS: FOLIC ACID/VITAMIN B COMP W-C TABLET PO SCH (09:05)
[2022-10-10] MEDS: ASPIRIN 81MG EC TABLET PO SCH (09:06)
[2022-10-10] MEDS: MYCOPHENOLATE MOFETIL 500MG TABLET PO SCH ×2 (09:06→16:49)
[2022-10-10] MEDS: MELOXICAM 7.5MG TABLET PO SCH (09:07)
[2022-10-10] MEDS: CARVEDILOL 3.125 MG TABLET PO SCH (09:07)
[2022-10-10] MEDS: HYDROXYCHLOROQUINE SULFATE 200MG TABLET PO SCH (09:07)
[2022-10-10] MEDS: MAGNESIUM OXIDE 400MG TABLET PO SCH (09:07)
[2022-10-10] MEDS: ONDANSETRON HCL 4MG/2ML INJ IV PRN ×2 (09:15→14:29)
[2022-10-10 09:54] LABS: BASOPHILS % 0.2 % (0.0-2.0); HEMATOCRIT. 29.3 % (36.0-48.0); HEMOGLOBIN. 9.3 g/dL (12.0-16.0); LYMPHOCYTES % 9.8 % (20.0-50.0); MEAN CORPUSCULAR HEMOGLOBIN 26.6 pg (28.0-32.0); MEAN CORPUSCULAR VOLUME 83.5 fL (81.0-99.0); MEAN PLATELET VOLUME 9.3 fl (7.4-10.4); MONOCYTES % 2.3 % (2.0-8.0); NEUTROPHILS % 87.7 % (40.0-76.0); PLATELET 128 x1000/uL (130-400); RED CELL DISTRIBUTION WIDTH 20.5 % (11.6-14.6)
[2022-10-10 10:08] LABS: PHOSPHORUS 4.3 mg/dL (2.5-4.9)
[2022-10-10 13:53] LABS: HEPATITIS B SURFACE ANTIGEN NEGATIVE
[2022-10-10] MEDS ORDERED: LIDOCAINE HCL/PF 1% 10 MG/ML 5ML VIAL ONE (13:57)
== END 2022-10-10 17:25 | disposition home or self-care (01) | DRG 425 ==
LOC: ER 15:42 → 7EST 18:31 → EDBEDREQTM 18:33 → EDBEDREQ 18:33 → ENRESERV 20:07
PROVIDERS: ADMIT Internal Medicine; ATTEND Internal Medicine
PROC: 5A1D70Z Performance of Urinary Filtration, Intermittent, Less than 6 Hours Per Day (ICD-10-PCS; principal; 2022-10-08)
PROC: 5A1D70Z Performance of Urinary Filtration, Intermittent, Less than 6 Hours Per Day (ICD-10-PCS; 2022-10-10)
PROC: 0JPT3XZ Removal of Tunneled Vascular Access Device from Trunk Subcutaneous Tissue and Fascia, Percutaneous Approach (ICD-10-PCS; 2022-10-10)
PROC: 02PYX3Z Removal of Infusion Device from Great Vessel, External Approach (ICD-10-PCS; 2022-10-10)
DX: E87.70 Fluid overload, unspecified (principal); R18.8 Other ascites; N18.6 End stage renal disease; I13.11 Hypertensive heart and chronic kidney disease without heart failure, with stage 5 chronic kidney disease, or end stage renal disease; E11.22 Type 2 diabetes mellitus with diabetic chronic kidney disease; D63.1 Anemia in chronic kidney disease; L98.499 Non-pressure chronic ulcer of skin of other sites with unspecified severity; M32.9 Systemic lupus erythematosus, unspecified; F19.20 Other psychoactive substance dependence, uncomplicated; Z20.822 Contact with and (suspected) exposure to COVID-19; F41.9 Anxiety disorder, unspecified; R79.89 Other specified abnormal findings of blood chemistry; F31.9 Bipolar disorder, unspecified; E87.5 Hyperkalemia; S50.901A Unspecified superficial injury of right elbow, initial encounter; X58.XXXA Exposure to other specified factors, initial encounter; Y93.89 Activity, other specified; Y92.89 Other specified places as the place of occurrence of the external cause; Y99.8 Other external cause status; Z76.5 Malingerer [conscious simulation]; Z86.16 Personal history of COVID-19; Z91.15 Patient's noncompliance with renal dialysis; Z99.2 Dependence on renal dialysis; Z79.899 Other long term (current) drug therapy
CPT/HCPCS: 36415; 36589; 71045; 80048; 80053; 82040; 83880; 83970; 84100; 84484; 85025; 86705; 86709; 86803; 87340; 87426; 90935; 93005; 94640; 99285; C9803; J1170; J1200; J1644; J2270; J2405; J2920; J3490; J7517

== ENCOUNTER 2023-02-24 04:36 | Inpatient (IN) | payer MEDICAID ==
[~2023-02-24] VITALS: Ht 152.4 cm; Wt 54.9 kg
[~2023-02-24 04:36] MED LIST changes: +ALBU18HF2 IH; -BENA-8 PO; +FAMO20TA8 MT; -MAGN400T26 PO; -MELO10CA PO; -METO-385 PO; +P20 MT; -PANT40SU PO; -SPIR25TA6 MT; -[UNRECOGNIZED DRUG - OTHER] PO
[2023-02-24] MEDS ORDERED: IPRATROPIUM BROMIDE (0.02%) 0.5MG/2.5ML NEB HHN STA (05:29)
[2023-02-24] MEDS ORDERED: ALBUTEROL (0.083%) 2.5MG/3ML NEB HHN STA (05:29)
[2023-02-24] MEDS ORDERED: METHYLPREDNISOLONE SOD SUCC 125 MG/2 ML VIAL IV STA (05:29)
[2023-02-24 05:40] LABS: BASOPHILS % 0.7 % (0.0-2.0); HEMOGLOBIN. 10.8 g/dL (12.0-16.0); LYMPHOCYTES % 12.2 % (20.0-50.0); MEAN CORPUSCULAR HEMOGLOBIN 28.9 pg (28.0-32.0); MEAN CORPUSCULAR VOLUME 90.7 fL (81.0-99.0); MONOCYTES % 13.2 % (2.0-8.0); NEUTROPHILS % 72.9 % (40.0-76.0); RED BLOOD CELL COUNT 3.75 mill/uL (4.2-5.4); RED CELL DISTRIBUTION WIDTH 17.6 % (11.6-14.6)
[2023-02-24 05:50] LABS: CHLORIDE 99 mEq/L (98-107)
[2023-02-24 06:02] LABS: HCG SCREEN NEGATIVE
[2023-02-24 06:10] LABS: MEAN PLATELET VOLUME 10.9 fl (7.4-10.4); PLATELET 97 x1000/uL (130-400)
[2023-02-24] MEDS ORDERED: MORPHINE SULFATE 4 MG/ML CPJ (NOT FOR IM USE) IV ONE (06:45)
[2023-02-24] MEDS ORDERED: DIPHENHYDRAMINE 50MG/ML VIAL IV ONE (06:45)
[2023-02-24 09:28] VITALS: BP 137/99
[2023-02-24] MEDS ORDERED: IPRATROPIUM/ALBUTEROL 0.5-3(2.5)MG/3ML NEB HHN PRN ×2 (10:30→11:00)
[2023-02-24] MEDS ORDERED: BUDESONIDE 0.5MG/2ML NEB HHN SCH (10:30)
[2023-02-24] MEDS ORDERED: LORAZEPAM 0.5MG TABLET PO PRN (11:00)
[2023-02-24] MEDS ORDERED: DOCUSATE SODIUM 100MG CAPSULE PO PRN (11:00)
[2023-02-24] MEDS ORDERED: CLONIDINE 0.1MG TABLET PO PRN (11:00)
[2023-02-24] MEDS ORDERED: ACETAMINOPHEN 325MG TABLET PO PRN (11:00)
[2023-02-24] MEDS ORDERED: NALOXONE HCL 0.4MG/ML VIAL IV PRN (11:15)
[2023-02-24] MEDS ORDERED: HYDROXYZINE 10 MG TABLET PO SCH (11:15)
[2023-02-24] MEDS: SEVELAMER CARBONATE 800 MG TABLET PO SCH ×2 (11:54→16:36)
[2023-02-24] MEDS: FAMOTIDINE 20MG TABLET PO SCH (11:54)
[2023-02-24] MEDS: AMLODIPINE 10MG TABLET PO SCH (11:54)
[2023-02-24] MEDS: CALCIUM ACETATE 667MG CAPSULE PO SCH ×2 (11:54→16:36)
[2023-02-24] MEDS: HYDROXYCHLOROQUINE SULFATE 200MG TABLET PO SCH (11:54)
[2023-02-24] MEDS: METHYLPREDNISOLONE SOD SUCC 40 MG/ML VIAL IV SCH ×3 (11:55→21:28)
[2023-02-24] MEDS: HYDROCODONE/ACETAMINOPHEN 5/325MG TABLET PO PRN ×2 (11:59→21:40)
[2023-02-24] MEDS: ONDANSETRON HCL 4MG/2ML INJ IV PRN ×3 (11:59→22:37)
[2023-02-24 12:00] VITALS: BP 153/104
[2023-02-24] MEDS: MYCOPHENOLATE MOFETIL 500MG TABLET PO SCH ×2 (12:05→18:04)
[2023-02-24] MEDS ORDERED: HYDROXYZINE 10 MG TABLET PO PRN (12:30)
[2023-02-24] MEDS: IPRATROPIUM/ALBUTEROL 0.5-3(2.5)MG/3ML NEB HHN SCH ×3 (12:44→20:25)
[2023-02-24] MEDS: HYDRALAZINE HCL 10MG TABLET PO SCH ×2 (13:11→21:29)
[2023-02-24] MEDS: ACETAMINOPHEN 325MG TABLET PO PRN (14:53)
[2023-02-24] MEDS: DIPHENHYDRAMINE 50MG/ML VIAL IV PRN ×2 (14:54→21:38)
[2023-02-24 16:00] VITALS: BP 160/106
[2023-02-24] MEDS: CARVEDILOL 3.125 MG TABLET PO SCH (16:36)
[2023-02-24 20:00] VITALS: BP 130/91
[2023-02-24] MEDS: MIRTAZAPINE 15MG TABLET PO SCH ×2 (21:00→21:29)
[2023-02-24] MEDS: ATORVASTATIN CALCIUM 40MG TABLET PO SCH (21:28)
[2023-02-25] VITALS (15 sets, daily range): BP systolic 114–146; BP diastolic 73–104
[2023-02-25] MEDS: IPRATROPIUM/ALBUTEROL 0.5-3(2.5)MG/3ML NEB HHN SCH ×6 (00:37→20:30)
[2023-02-25] MEDS: ACETAMINOPHEN 325MG TABLET PO PRN ×3 (00:39→18:13)
[2023-02-25] MEDS: DIPHENHYDRAMINE 50MG/ML VIAL IV PRN ×4 (03:47→23:25)
[2023-02-25] MEDS: HYDROCODONE/ACETAMINOPHEN 5/325MG TABLET PO PRN ×2 (03:49→08:17)
[2023-02-25] MEDS: ONDANSETRON HCL 4MG/2ML INJ IV PRN ×4 (04:18→23:26)
[2023-02-25] MEDS: METHYLPREDNISOLONE SOD SUCC 40 MG/ML VIAL IV SCH ×3 (06:10→21:45)
[2023-02-25] MEDS: HYDRALAZINE HCL 10MG TABLET PO SCH ×3 (06:12→21:52)
[2023-02-25 07:29] LABS: BASOPHILS % 0.1 % (0.0-2.0); HEMATOCRIT. 33.8 % (36.0-48.0); HEMOGLOBIN. 10.8 g/dL (12.0-16.0); LYMPHOCYTES % 10.6 % (20.0-50.0); MEAN CORPUSCULAR HEMOGLOBIN 29.2 pg (28.0-32.0); MEAN CORPUSCULAR VOLUME 91.2 fL (81.0-99.0); MEAN PLATELET VOLUME 11.2 fl (7.4-10.4); MONOCYTES % 5.4 % (2.0-8.0); NEUTROPHILS % 83.9 % (40.0-76.0); PLATELET 92 x1000/uL (130-400); RED BLOOD CELL COUNT 3.71 mill/uL (4.2-5.4); RED CELL DISTRIBUTION WIDTH 17.8 % (11.6-14.6)
[2023-02-25] MEDS: ASPIRIN 81MG EC TABLET PO SCH (08:16)
[2023-02-25] MEDS: CARVEDILOL 3.125 MG TABLET PO SCH ×2 (08:16→16:47)
[2023-02-25] MEDS: MYCOPHENOLATE MOFETIL 500MG TABLET PO SCH ×2 (08:16→16:42)
[2023-02-25] MEDS: SEVELAMER CARBONATE 800 MG TABLET PO SCH ×3 (08:16→16:42)
[2023-02-25] MEDS: HYDROXYCHLOROQUINE SULFATE 200MG TABLET PO SCH (08:16)
[2023-02-25] MEDS: CALCIUM ACETATE 667MG CAPSULE PO SCH ×3 (08:16→16:42)
[2023-02-25] MEDS: FAMOTIDINE 20MG TABLET PO SCH (08:16)
[2023-02-25] MEDS: AMLODIPINE 10MG TABLET PO SCH (08:18)
[2023-02-25] MEDS ORDERED: DEXTROSE 50% WATER 50ML SYRINGE IV NR (09:30)
[2023-02-25] MEDS ORDERED: INSULIN REGULAR (HUMULIN R) 300UNITS/3ML VIAL IV NR (09:30)
[2023-02-25] MEDS ORDERED: CALCIUM CHLORIDE 1,000 MG in DEXT 5% WATER 90 ML IV NR (09:30)
[2023-02-25 11:57] LABS: HEPATITIS B SURFACE ANTIGEN NEGATIVE
[2023-02-25] MEDS: HYDROMORPHONE HCL 2MG TABLET PO PRN ×3 (12:40→21:46)
[2023-02-25] MEDS ORDERED: DIPHENHYDRAMINE 50MG/ML VIAL IV ONE (14:00)
[2023-02-25 20:31] LABS: INR 1.2; PROTHROMBIN TIME 12.8 sec (9.6-11.0)
[2023-02-25] MEDS: MIRTAZAPINE 15MG TABLET PO SCH (21:00)
[2023-02-25] MEDS: ATORVASTATIN CALCIUM 40MG TABLET PO SCH (21:27)
[2023-02-26 00:11] VITALS: BP 123/78
[2023-02-26] MEDS: ACETAMINOPHEN 325MG TABLET PO PRN (00:18)
[2023-02-26] MEDS: IPRATROPIUM/ALBUTEROL 0.5-3(2.5)MG/3ML NEB HHN SCH ×5 (00:22→15:32)
[2023-02-26] MEDS: HYDROMORPHONE HCL 2MG TABLET PO PRN ×3 (03:30→12:53)
[2023-02-26 05:31] LABS: HEMATOCRIT. 35.6 % (36.0-48.0); HEMOGLOBIN. 11.6 g/dL (12.0-16.0); MEAN CORPUSCULAR HEMOGLOBIN 29.5 pg (28.0-32.0); MEAN CORPUSCULAR VOLUME 90.6 fL (81.0-99.0); MEAN PLATELET VOLUME 10.6 fl (7.4-10.4); PLATELET 100 x1000/uL (130-400); RED BLOOD CELL COUNT 3.93 mill/uL (4.2-5.4); RED CELL DISTRIBUTION WIDTH 17.6 % (11.6-14.6)
[2023-02-26] MEDS: ONDANSETRON HCL 4MG/2ML INJ IV PRN ×3 (05:31→13:04)
[2023-02-26] MEDS: DIPHENHYDRAMINE 50MG/ML VIAL IV PRN ×3 (05:31→15:10)
[2023-02-26] MEDS: METHYLPREDNISOLONE SOD SUCC 40 MG/ML VIAL IV SCH ×2 (05:31→15:11)
[2023-02-26] MEDS: HYDRALAZINE HCL 10MG TABLET PO SCH ×2 (05:37→15:11)
[2023-02-26 08:00] VITALS: BP 143/76
[2023-02-26] MEDS ORDERED: SODIUM BICARBONATE 4% (2.4MEQ) 5ML VIAL IV ONE (08:10)
[2023-02-26] MEDS ORDERED: LIDOCAINE HCL 1% 30ML VIAL (10MG/ML) ONE (08:10)
[2023-02-26] MEDS: ASPIRIN 81MG EC TABLET PO SCH (09:00)
[2023-02-26] MEDS: AMLODIPINE 10MG TABLET PO SCH (10:26)
[2023-02-26] MEDS: MYCOPHENOLATE MOFETIL 500MG TABLET PO SCH (10:26)
[2023-02-26] MEDS: HYDROXYCHLOROQUINE SULFATE 200MG TABLET PO SCH (10:27)
[2023-02-26] MEDS: SEVELAMER CARBONATE 800 MG TABLET PO SCH ×2 (10:27→13:19)
[2023-02-26] MEDS: FAMOTIDINE 20MG TABLET PO SCH (10:27)
[2023-02-26] MEDS: CALCIUM ACETATE 667MG CAPSULE PO SCH ×2 (10:27→13:19)
[2023-02-26] MEDS: CARVEDILOL 3.125 MG TABLET PO SCH (10:27)
[2023-02-26] MEDS ORDERED: P20 MT (11:45)
[2023-02-26] MEDS ORDERED: FAMO20TA8 MT (11:45)
[2023-02-26 12:00] VITALS: BP 133/90
[2023-02-26 12:50] LABS: PLATELET ESTIMATE SLIGHTLY DECREASED
[2023-02-26 14:17] VITALS: BP 148/66
== END 2023-02-26 16:50 | disposition home or self-care (01) | DRG 190 ==
LOC: ER 04:36 → 3WST 06:43
PROVIDERS: ADMIT Internal Medicine; ATTEND Internal Medicine
PROC: 5A1D70Z Performance of Urinary Filtration, Intermittent, Less than 6 Hours Per Day (ICD-10-PCS; principal; 2023-02-25)
PROC: 0W9G3ZZ Drainage of Peritoneal Cavity, Percutaneous Approach (ICD-10-PCS; 2023-02-26)
DX: I21.4 Non-ST elevation (NSTEMI) myocardial infarction (principal); J96.00 Acute respiratory failure, unspecified whether with hypoxia or hypercapnia; I50.23 Acute on chronic systolic (congestive) heart failure; N18.6 End stage renal disease; D69.6 Thrombocytopenia, unspecified; R18.8 Other ascites; J45.901 Unspecified asthma with (acute) exacerbation; E11.22 Type 2 diabetes mellitus with diabetic chronic kidney disease; D63.1 Anemia in chronic kidney disease; I13.2 Hypertensive heart and chronic kidney disease with heart failure and with stage 5 chronic kidney disease, or end stage renal disease; M32.9 Systemic lupus erythematosus, unspecified; J44.9 Chronic obstructive pulmonary disease, unspecified; F17.210 Nicotine dependence, cigarettes, uncomplicated; F31.9 Bipolar disorder, unspecified; E87.5 Hyperkalemia; Z79.4 Long term (current) use of insulin; Z99.2 Dependence on renal dialysis
CPT/HCPCS: 36415; 49083; 71045; 80048; 80053; 82040; 83615; 83880; 84132; 84484; 84703; 85025; 86705; 86709; 86803; 87340; 90935; 93005; 94640; 94644; 99291; C1893; J1200; J1815; J2270; J2405; J2920; J2930; J3490; J7060; J7517